=== PATIENT | female | born 1985 | race Caucasian/White ===

== ENCOUNTER 2017-07-17 10:00 | Emergency (ER) | payer BC ==
[2017-07-17 10:10] VITALS: BP 125/81
--- NOTE | 2017-07-17 11:05 | EDM.PDOC ---
ED HPI GENERAL MEDICAL PROBLEM - General Chief Complaint: Upper Extremity Injury/Pain Stated Complaint: LEFT WRIST INJURY Time Seen by Provider: 07/17/17 10:13 Source of Information: Reports: Patient History Limitations: Reports: No Limitations - History of Present Illness INITIAL COMMENTS - FREE TEXT/NARRATIVE: The patient presents with left wrist pain. She was playing volleyball last night and she went to hit a ball with her wrists and she felt pain in her left wrist at the distal ulna. She denies any other injuries. She has pain with movement. She has edema to the distal ulna. She has good sensation distally. She is right handed. 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: Other OB/BYN History: x3 - Past Surgical History GI Surgical History: Reports: Appendectomy Musculoskeletal Surgical History: Reports: Arthroscopic Knee Social & Family History - Family History Family Medical History: Noncontributory - Tobacco Use Smoking Status *Q: Current Every Day Smoker Years of Tobacco use: 15 Packs/Tins Daily: 0.5 - Caffeine Use Caffeine Use: Reports: Coffee - Recreational Drug Use Recreational Drug Use: No Review of Systems - Review of Systems Review Of Systems: See Below Constitutional: Reports: No Symptoms Eyes: Reports: No Symptoms Ears: Reports: No Symptoms Nose: Reports: No Symptoms Mouth/Throat: Reports: No Symptoms Respiratory: Reports: No Symptoms Cardiovascular: Reports: No Symptoms GI/Abdominal: Reports: No Symptoms Genitourinary: Reports: No Symptoms Musculoskeletal: Reports: Other (Left wrists pain) ED EXAM, GENERAL - Physical Exam Exam: See Below Exam Limited By: No Limitations General Appearance: Alert, No Apparent Distress Ears: Normal External Exam Nose: Normal Inspection Head: Atraumatic, Normocephalic Neck: Normal Inspection Respiratory/Chest: No Respiratory Distress Extremities: Other (Pain upon palpation to the left wrist at the ulna side. There is some edema. She has good sensation and capillary refill.) Course - Vital Signs Last Recorded V/S: Last Vital Signs Temp 98.1 F 07/17/17 10:05 Pulse 81 07/17/17 10:05 Resp 16 07/17/17 10:05 BP 125/81 07/17/17 10:05 Pulse Ox 100 07/17/17 10:05 - Orders/Labs/Meds Orders: Active Orders 24 hr Category Date Time Status Wrist Comp Min 3V Lt [CR] Stat Exams 07/17/17 10:16 Taken - Re-Assessments/Exams Free Text/Narrative Re-Assessment/Exam: 07/17/17 11:04 Her x-ray shows no fracture or dislocation. She has a sprain of her wrist. I will get her a velcro splint and have her follow up with her therapist. She is seeing one for her back. Departure - Departure Time of Disposition: 11:05 Disposition: Home, Self-Care 01 Condition: Good Clinical Impression: Sprain of left wrist Qualifiers: Encounter type: initial encounter Qualified Code(s): S63.502A - Unspecified sprain of left wrist, initial encounter - Discharge Information Referrals: Elizabeth Hyatt DO [Primary Care Provider] - Additional Instructions: Ice your wrist for 15 minutes every other hour while awake for 2 days. Take motrin or aleve for the pain. Wear the wrist splint for comfort for the next week. Follow up with your doctor for a repeat x-ray if you are not better in 1 to 2 weeks. - My Orders Last 24 Hours: My Active Orders 07/17/17 10:16 Wrist Comp Min 3V Lt [CR] Stat - Assessment/Plan Last 24 Hours: My Active Orders 07/17/17 10:16 Wrist Comp Min 3V Lt [CR] Stat
--- NOTE | 2017-07-17 11:29 | CR ---
Left wrist: Four views of the left wrist were obtained. Comparison: No prior study. Joint spaces within the left wrist appear maintained. No fracture, dislocation or other bony abnormality is seen. Impression: 1. No abnormality is identified on left wrist exam. Diagnostic code #1
== END 2017-07-17 11:13 | disposition home or self-care (01) ==
LOC: JD.ED 10:00
DX: S63.502A Unspecified sprain of left wrist, initial encounter (principal); F17.210 Nicotine dependence, cigarettes, uncomplicated; W22.8XXA Striking against or struck by other objects, initial encounter; Y93.68 Activity, volleyball (beach) (court)
CPT/HCPCS: 73110-26-LT; 73110-LT; 99283; 99284

== ENCOUNTER 2020-08-17 07:04 | Day surgery (SDC) | payer BC ==
[~2020-08-17 07:04] MED LIST: EPINEPHrine 1 MG/ML 30 ML MDV IRR SCH; Lactated Ringers 1,000 ML IV SCH; Lidocaine 1%/Sod Bicarbonate in NS 8.4% 1 ML Syringe IDERM PRN; Sodium Chloride 0.9% 10 ML Syringe FLUSH PRN
[2020-08-17] MEDS ORDERED: Lidocaine 1% 4 ML ONE (07:10)
[2020-08-17] MEDS ORDERED: Propofol 200 MG/20 ML SDV ONE (07:10)
[2020-08-17] MEDS ORDERED: fentaNYL 100 MCG/2 ML SDV ONE ×2 (07:11→07:20)
[2020-08-17] MEDS ORDERED: Ketorolac 30 MG/ML SDV ONE (07:11)
[2020-08-17] MEDS ORDERED: Midazolam 1 MG/ML 2 ML SDV ONE (07:11)
[2020-08-17] MEDS ORDERED: Ondansetron 4 MG/2 ML SDV ONE (07:11)
[2020-08-17] MEDS ORDERED: Scopolamine 1.5 MG Transdermal Patch TOP SCH (07:16)
[2020-08-17] MEDS ORDERED: ceFAZolin 1 GM Vial ONE (07:19)
--- NOTE | 2020-08-17 07:33 | PCM.PREANE ---
Preanesthetic Assessment - Anesthesia/Transfusion/Family Hx Anesthesia History: Prior Anesthesia Reaction Type of Anesthesia Reaction: Other (see below) (PONV) Family History of Anesthesia Reaction: No Transfusion History: No Prior Transfusion(s) - Review of Systems General: No Symptoms Pulmonary: Cough Cardiovascular: No Symptoms Gastrointestinal: No Symptoms Neurological: No Symptoms Other: Reports: None - Physical Assessment NPO Status Date: 08/16/20 NPO Status Time: 23:15 Vital Signs: Last Vital Signs Temp 36.7 C 08/17/20 07:10 Pulse 87 08/17/20 07:10 Resp 18 08/17/20 07:10 BP 118/73 08/17/20 07:10 Pulse Ox 97 08/17/20 07:10 Height: 1.7 m Weight: 62.596 kg ASA Class: 2 Mental Status: Alert & Oriented x3 Airway Class: Mallampati = 1 Dentition: Reports: Normal Dentition Thyro-Mental Finger Breadths: 3 Mouth Opening Finger Breadths: 3 ROM/Head Extension: Full Lungs: Clear to Auscultation, Normal Respiratory Effort Cardiovascular: Regular Rate, Regular Rhythm - Lab Values: Laboratory Last Values Urine HCG, Qual Negative (NEGATIVE) 08/17/20 07:05 MRSA (PCR) Negative 08/09/20 12:46 - Allergies Allergies/Adverse Reactions: Allergies Allergy/AdvReac Type Severity Reaction Status Date / Time latex Allergy Rash Verified 08/16/20 14:55 - Acknowledgements Anesthesia Type Planned: General Anesthesia Pt an Appropriate Candidate for the Planned Anesthesia: Yes Alternatives and Risks of Anesthesia Discussed w Pt/Guardian: Yes Pt/Guardian Understands and Agrees with Anesthesia Plan: Yes PreAnesthesia Questionnaire HEENT History: Reports: Allergic Rhinitis, Impaired Vision, Otitis Media Cardiovascular History: Reports: None Respiratory History: Reports: Other (See Below) Other Respiratory History: cough, URI Gastrointestinal History: Reports: None Genitourinary History: Reports: None 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 OB/BYN History: lost IUD, pelvic congestion syndrome, pelvic pain, mennorrhagia, vaginitis, , symphysis, pubis disruption Musculoskeletal History: Reports: None Neurological History: Reports: None Psychiatric History: Reports: None Endocrine/Metabolic History: Reports: None Hematologic History: Reports: Anemia Immunologic History: Reports: None Oncologic (Cancer) History: Reports: None Dermatologic History: Reports: None - Infectious Disease History Infectious Disease History: Reports: None - Past Surgical History Head Surgeries/Procedures: Reports: None HEENT Surgical History: Reports: Oral Surgery Cardiovascular Surgical History: Reports: None Respiratory Surgical History: Reports: None GI Surgical History: Reports: Appendectomy Female Surgical History: Reports: None Male Surgical History: Reports: None Endocrine Surgical History: Reports: None Neurological Surgical History: Reports: None Musculoskeletal Surgical History: Reports: Arthroscopic Knee Other Musculoskeletal Surgeries/Procedures:: knee surgery and hammer toe surgery Oncologic Surgical History: Reports: None Dermatological Surgical History: Reports: None - SUBSTANCE USE Tobacco Use Status *Q: Current Every Day Tobacco User Recreational Drug Use History: No - HOME MEDS Home Medications: Home Meds Ascorbic Acid [Vitamin C] 1,000 mg PO DAILY 08/16/20 [History] EPINEPHrine [Epipen] 1 dose IM ASDIRECTED 08/16/20 [History] Echinacea 380 mg PO DAILY 08/16/20 [History] Elderberry Fruit and Flower [Black Elderberry 575 mg Cap] 1 cap PO DAILY 08/16/20 [History] Multivitamin 1 tab PO DAILY 08/16/20 [History] levonorgestreL [Mirena] 1 device .ROUTE ASDIRECTED 08/16/20 [History] Acetaminophen/HYDROcodone [[place] 325-5 MG] 1 - 2 tab PO Q6H PRN #20 tablet 08/17/20 [Rx] Aspirin [Aspirin EC] 325 mg PO BID #84 tab 08/17/20 [Rx] - CURRENT (IN HOUSE) MEDS Current Meds: Current Medications Epinephrine HCl (Adrenalin) 3 mg IRR ONETIME OSWALDO Stop: 08/17/20 23:00 Lactated Ringer's (Ringers, Lactated) 1,000 mls @ 125 mls/hr IV ASDIRECTED OSWALDO Stop: 08/17/20 23:00 Lidocaine/Sodium Bicarbonate (Buffered Lidocaine 1% In Ns 8.4%) 0.25 ml IDERM ONETIME PRN PRN Reason: Prior to IV Start Stop: 08/17/20 18:00 Scopolamine (Transderm-Scop) 1.5 mg TOP ONETIME OSWALDO Stop: 08/17/20 12:00 Last Admin: 08/17/20 07:26 Dose: 1.5 mg Documented by: Sodium Chloride (Saline Flush) 10 ml FLUSH ASDIRECTED PRN PRN Reason: Keep Vein Open Stop: 08/17/20 18:00 Discontinued Medications Cefazolin Sodium (Ancef) Confirm Administered Dose 2 gm .ROUTE .STK-MED ONE Stop: 08/17/20 07:20 Fentanyl (Sublimaze) Confirm Administered Dose 100 mcg .ROUTE .STK-MED ONE Stop: 08/17/20 07:12 Fentanyl (Sublimaze) Confirm Administered Dose 100 mcg .ROUTE .STK-MED ONE Stop: 08/17/20 07:21 Lidocaine HCl (Xylocaine-Mpf 1%) Confirm Administered Dose 4 mls @ as directed .ROUTE .STK-MED ONE Stop: 08/17/20 07:11 Ketorolac Tromethamine (Toradol) Confirm Administered Dose 30 mg .ROUTE .STK-MED ONE Stop: 08/17/20 07:12 Midazolam HCl (Versed 1 Mg/Ml) Confirm Administered Dose 2 mg .ROUTE .STK-MED ONE Stop: 08/17/20 07:12 Ondansetron HCl (Zofran) Confirm Administered Dose 4 mg .ROUTE .STK-MED ONE Stop: 08/17/20 07:12 Propofol (Diprivan 20 Ml) Confirm Administered Dose 200 mg .ROUTE .STK-MED ONE Stop: 08/17/20 07:11
[2020-08-17] MEDS ORDERED: Bupivacaine 0.25% 10 ML SDV ONE (08:18)
[2020-08-17] MEDS ORDERED: Succinylcholine/Sod PF 100 MG/5 ML SYRINGE IV ONE (08:56)
[2020-08-17] MEDS ORDERED: fentaNYL 100 MCG/2 ML SDV IVPUSH PRN (09:02)
[2020-08-17] MEDS ORDERED: Ondansetron 4 MG/2 ML SDV IVPUSH PRN (09:02)
[2020-08-17] MEDS ORDERED: Lactated Ringers 1,000 ML ONE (09:16)
--- NOTE | 2020-08-17 09:48 | PCM.POSTAN ---
POST ANESTHESIA ASSESSMENT - MENTAL STATUS Mental Status: Alert, Oriented - VITAL SIGNS Vital Signs: Last Vital Signs Temp 36.7 C 08/17/20 07:10 Pulse 87 08/17/20 07:10 Resp 18 08/17/20 07:10 BP 118/73 08/17/20 07:10 Pulse Ox 97 08/17/20 07:10 - RESPIRATORY Respiratory Status: Respiratory Rate WNL, Airway Patent, O2 Saturation Stable - CARDIOVASCULAR CV Status: Pulse Rate WNL, Blood Pressure Stable - GASTROINTESTINAL GI Status: No Symptoms - PAIN Pain Score: 1 - POST OP HYDRATION Hydration Status: Adequate & Stable
[2020-08-17] MEDS ORDERED: Acetaminophen/HYDROcodone 325-5 MG Tab PO PRN (10:44)
[2020-08-17 11:35] VITALS: BP 93/59; PULSE 60
--- NOTE | 2020-08-17 11:42 | PCM48HPAN ---
Post Anesthesia Note - EVALUATION WITHIN 48HRS OF ANESTHETIC Vital Signs in Normal Range: Yes Patient Participated in Evaluation: Yes Respiratory Function Stable: Yes Airway Patent: Yes Cardiovascular Function Stable: Yes Hydration Status Stable: Yes Pain Control Satisfactory: Yes Nausea and Vomiting Control Satisfactory: Yes Mental Status Recovered: Yes Vital Signs: Last Vital Signs Temp 36.7 C 08/17/20 11:10 Pulse 60 08/17/20 11:34 Resp 16 08/17/20 11:34 BP 93/59 L 08/17/20 11:34 Pulse Ox 97 08/17/20 11:34
--- NOTE | 2020-08-28 07:47 | PCM.OPNOTE ---
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
--- NOTE | 2020-09-01 13:02 | OR ---
DATE OF OPERATION: 08/17/2020 SURGEON: Domenic Ruiz MD OPERATION PERFORMED: Right knee video arthroscopy, partial medial meniscectomy, and partial synovectomy. 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 ANESTHESIA: General LMA with local. ANESTHESIA PROVIDER: Linette Duncan CRNA. SEO ANALYST: Patsy Riley PA-C ESTIMATED BLOOD LOSS: Less than 5 mL. COMPLICATIONS: None. CONDITION: Stable. DESCRIPTION OF PROCEDURE: The patient was identified in the preoperative holding area where proper site was marked and identified by the surgeon. The patient was taken back to the operative theater where, after adequate anesthesia, the patient's left lower extremity was placed in a well leg goncalves. Right lower extremity had a nonsterile tourniquet applied and then was placed in a C-clamp goncalves. Foot of the bed was then lowered. Right lower extremity was then sterilely prepped and draped in the usual sterile fashion. OR time-out was performed. The patient received 2 g of IV Ancef. At this time, the right lower extremity was exsanguinated. Tourniquet was insufflated to 250 mmHg. Standard anterolateral portal incision was made. Scope trocar was introduced. The patient was noted to have grade 2 chondromalacia of the patella with some areas of grade 3. She was noted to have significant synovitis. There were no loose cartilaginous flaps. At this time, attention was turned to the medial compartment. Anteromedial portal was created with the use of a spinal needle. The patient was noted to have diffuse tear of the posterior horn, but more degenerative posterior horn of the medial meniscus and was not repairable. At this time, partial medial meniscectomy of roughly 35% to 40% of the posterior horn was then done back to a stable rim. The patient was then noted to have some grade 2 chondromalacia of the medial femoral condyle, but no loose cartilaginous flaps. The patient was noted to have significant overgrowth of the fat pad with synovitis of the fat pad anteriorly. The notch showed the ACL intact. Lateral compartment showed no signs of chondromalacia. At this time, attention was turned to the anterior compartment again and a partial synovectomy of the fat pad was then undertaken with significant synovitis and impingement. Excess saline was drained from the knee. 3-0 nylon suture was used for closure of the skin. The patient was placed in a sterile soft dressing and sent to the PACU in stable condition. GABE /[id number]
== END 2020-08-17 12:00 | disposition home or self-care (01) ==
LOC: JD.SDS 07:04
PROVIDERS: ATTEND Orthopaedic Surgery
DX: S83.241A Other tear of medial meniscus, current injury, right knee, initial encounter (principal); M22.41 Chondromalacia patellae, right knee; M25.861 Other specified joint disorders, right knee; M65.861 Other synovitis and tenosynovitis, right lower leg; G89.29 Other chronic pain; Z91.030 Bee allergy status; Z91.040 Latex allergy status; Z79.899 Other long term (current) drug therapy; Z98.890 Other specified postprocedural states; Z87.891 Personal history of nicotine dependence; Z79.82 Long term (current) use of aspirin
CPT/HCPCS: 29875; 29881; 81025; 87641; A9270; J0171; J0330; J0690; J1885; J2001; J2250; J2405; J2704; J3010; J3490; J7120; 01400

== ENCOUNTER 2022-04-27 06:05 | Emergency (ER) | payer BC, OTHER ==
[2022-04-27 07:31] VITALS: BP 122/78; PULSE 73
[2022-04-27] MEDS ORDERED: Sodium Chloride 0.9% 1,000 ML IV STA (07:37)
[2022-04-27] MEDS ORDERED: Sodium Chloride 0.9% 10 ML Syringe FLUSH PRN (07:37)
[2022-04-27] MEDS ORDERED: Ondansetron 4 MG/2 ML SDV IVPUSH ONE (07:37)
[2022-04-27] MEDS ORDERED: HYDROmorphone 0.5 MG/0.5 ML Syringe IVPUSH ONE (07:39)
== END 2022-04-27 10:12 | disposition home or self-care (01) ==
LOC: JD.ED 06:05
DX: R10.13 Epigastric pain (principal); R11.2 Nausea with vomiting, unspecified; R19.7 Diarrhea, unspecified; Z91.040 Latex allergy status; Z79.899 Other long term (current) drug therapy; Z79.82 Long term (current) use of aspirin; Z90.49 Acquired absence of other specified parts of digestive tract
CPT/HCPCS: 36415; 76705; 80053; 81001; 83690; 85025; 96361; 96374; 99284; J2405; J3490; J7030

== ENCOUNTER 2022-05-01 09:18 | Day surgery (SDC) | payer OTHER ==
[~2022-05-01 09:18] MED LIST changes: +Dexamethasone 4 MG/ML SDV ONE; -EPINEPHrine 1 MG/ML 30 ML MDV IRR SCH; +Ketorolac 15 MG/ML SDV ONE; -Lactated Ringers 1,000 ML IV SCH; +Lidocaine 1% 4 ML ONE; -Lidocaine 1%/Sod Bicarbonate in NS 8.4% 1 ML Syringe IDERM PRN; +Midazolam 1 MG/ML 2 ML SDV ONE; +Ondansetron 4 MG/2 ML SDV ONE; +Propofol 200 MG/20 ML SDV ONE; +Rocuronium 50 MG/5 ML Vial ONE; -Sodium Chloride 0.9% 10 ML Syringe FLUSH PRN; +fentaNYL 250 MCG/5 ML SDV ONE
[2022-05-01] MEDS ORDERED: Bupivacaine 0.5%/EPINEPHrine 1:200,000 50 ML MDV ONE (09:58)
[2022-05-01] MEDS ORDERED: Ondansetron 4 MG/2 ML SDV IVPUSH PRN (10:15)
[2022-05-01] MEDS ORDERED: fentaNYL 100 MCG/2 ML SDV IVPUSH PRN ×2 (10:15→13:00)
[2022-05-01] MEDS ORDERED: Promethazine 25 MG/ML SDV IM ONE (10:15)
[2022-05-01] MEDS ORDERED: HYDROmorphone 0.5 MG/0.5 ML Syringe IVPUSH PRN (10:15)
[2022-05-01] MEDS ORDERED: Scopolamine 1.5 MG Transdermal Patch TOP ONE (10:30)
[2022-05-01] MEDS ORDERED: ceFAZolin 2 GM Vial ONE (10:57)
[2022-05-01] MEDS ORDERED: Lactated Ringers 1,000 ML ONE ×2 (11:09→12:01)
[2022-05-01] MEDS ORDERED: Ketamine 500 mg/10 ML MDV ONE (11:09)
[2022-05-01] MEDS ORDERED: Neostigmine Methylsulfate 10 MG/10 ML MDV ONE (11:23)
[2022-05-01] MEDS ORDERED: Propofol 200 MG/20 ML SDV ONE (11:25)
[2022-05-01] MEDS ORDERED: diphenhydrAMINE 50 MG/ML SDV ONE (11:27)
[2022-05-01] MEDS ORDERED: Lactated Ringers 1,000 ML IV SCH (12:00)
[2022-05-01] MEDS ORDERED: Promethazine 12.5 MG in Sodium Chloride 0.9% 50 ML IV PRN (13:04)
[2022-05-01] MEDS ORDERED: traMADol 50 MG Tab PO ONE (14:30)
[2022-05-01 15:55] VITALS: BP 113/73; PULSE 84
== END 2022-05-01 15:50 | disposition home or self-care (01) ==
LOC: JD.SDS 09:18
PROVIDERS: ATTEND Surgery
DX: K81.1 Chronic cholecystitis (principal); K29.80 Duodenitis without bleeding; K82.8 Other specified diseases of gallbladder; G89.29 Other chronic pain; J30.9 Allergic rhinitis, unspecified; F41.9 Anxiety disorder, unspecified; E55.9 Vitamin D deficiency, unspecified; Z91.040 Latex allergy status; Z91.030 Bee allergy status; Z79.899 Other long term (current) drug therapy; Z90.49 Acquired absence of other specified parts of digestive tract; Z98.890 Other specified postprocedural states; Z87.891 Personal history of nicotine dependence
CPT/HCPCS: 43239; 47562; 81025; A9270; J0690; J1100; J1200; J1885; J2250; J2405; J2704; J2710; J3010; J3490; J7120; 88305

== ENCOUNTER 2022-08-02 11:57 | Emergency (ER) | payer OTHER ==
[2022-08-02] MEDS ORDERED: Sodium Chloride 0.9% 10 ML Syringe FLUSH PRN (12:17)
[2022-08-02] MEDS ORDERED: Ondansetron 4 MG/2 ML SDV IVPUSH ONE (12:19)
[2022-08-02] MEDS ORDERED: Sodium Chloride 0.9% 1,000 ML IV ONE ×2 (12:19→13:49)
[2022-08-02] MEDS ORDERED: Pantoprazole 40 MG Vial IVPUSH ONE (12:30)
[2022-08-02 13:18] LABS: CORONAVIRUS COVID-19 NAA POSITIVE (NEGATIVE)
[2022-08-02 13:20] LABS: ESTIMATED GFR 86 mL/min (>60)
[2022-08-02] MEDS ORDERED: Magnesium Sulfate/Water 4 GM in Premix Bag 1 BAG IV ONE (13:48)
[2022-08-02] MEDS ORDERED: Ketorolac 30 MG/ML SDV IVPUSH ONE (13:54)
[2022-08-02 17:06] VITALS: BP 95/55; PULSE 91
== END 2022-08-02 17:15 | disposition home or self-care (01) ==
LOC: JD.ED 11:57
DX: U07.1 COVID-19 (principal); E83.42 Hypomagnesemia; Z91.030 Bee allergy status; Z91.040 Latex allergy status; Z88.6 Allergy status to analgesic agent; Z79.899 Other long term (current) drug therapy; Z90.49 Acquired absence of other specified parts of digestive tract
CPT/HCPCS: 0240U; 36415; 71045; 80053; 83605; 83735; 84484; 85025; 85379; 86140; 93005; 96361; 96365; 96375; 99285; C9113; J1885; J2405; J3475; J3490; J7030; 93010; 99284

== ENCOUNTER 2023-11-05 08:40 | Day surgery (SDC) | payer OTHER ==
[~2023-11-05 08:40] MED LIST changes: -Dexamethasone 4 MG/ML SDV ONE; -Ketorolac 15 MG/ML SDV ONE; -Lidocaine 1% 4 ML ONE; -Midazolam 1 MG/ML 2 ML SDV ONE; -Ondansetron 4 MG/2 ML SDV ONE; -Propofol 200 MG/20 ML SDV ONE; -Rocuronium 50 MG/5 ML Vial ONE; +Sodium Chloride 0.9% 10 ML Syringe FLUSH PRN; -fentaNYL 250 MCG/5 ML SDV ONE
[2023-11-05] MEDS: Lactated Ringers 1,000 ML IV SCH ×2 (09:00→13:13)
[2023-11-05] MEDS ORDERED: Sodium Chloride 0.9% 10 ML Syringe FLUSH SCH (09:00)
[2023-11-05] MEDS ORDERED: Bupivacaine 0.25% 10 ML SDV ONE (10:54)
[2023-11-05] MEDS ORDERED: EPINEPHrine 1 MG/ML SDV ONE (10:55)
[2023-11-05] MEDS ORDERED: Scopalamine 1mg/3day Transdermal Patch TRDERM PRN (11:03)
[2023-11-05] MEDS ORDERED: Caffeine 200 MG Tab PO STA (11:15)
[2023-11-05] MEDS ORDERED: Scopalamine 1mg/3day Transdermal Patch TOP SCH (11:17)
[2023-11-05] MEDS ORDERED: HYDROmorphone 0.5 MG/0.5 ML Syringe IVPUSH PRN (11:18)
[2023-11-05] MEDS ORDERED: fentaNYL 100 MCG/2 ML SDV IVPUSH PRN (11:18)
[2023-11-05] MEDS ORDERED: Ondansetron 4 MG/2 ML SDV IVPUSH PRN (11:18)
[2023-11-05] MEDS ORDERED: Lidocaine 2% 11 ML Jelly Filled Syringe ONE (11:26)
[2023-11-05] MEDS ORDERED: Lidocaine 2% 5 ML SDV ONE (11:30)
[2023-11-05] MEDS ORDERED: Midazolam 1 MG/ML 2 ML SDV ONE (11:31)
[2023-11-05] MEDS ORDERED: Propofol 200 MG/20 ML SDV ONE (11:31)
[2023-11-05] MEDS ORDERED: Ondansetron 4 MG/2 ML SDV ONE (12:13)
[2023-11-05] MEDS ORDERED: Dexamethasone 4 MG/ML 5 ML MDV ONE (12:13)
[2023-11-05] MEDS ORDERED: HYDROmorphone 0.5 MG/0.5 ML Syringe ONE (12:18)
[2023-11-05] MEDS ORDERED: Lactated Ringers 1,000 ML IV ONE (12:30)
[2023-11-05] MEDS ORDERED: Lidocaine 1% 2 ML ONE (12:56)
[2023-11-05] MEDS ORDERED: Ketorolac 15 MG/ML SDV ONE (12:56)
[2023-11-05] MEDS ORDERED: traMADol 50 MG Tab PO SCH (14:47)
[2023-11-05 14:48] VITALS: BP 119/80; PULSE 70
== END 2023-11-05 14:58 | disposition home or self-care (01) ==
LOC: JD.SDS 08:40
PROVIDERS: ATTEND Orthopaedic Surgery
DX: S83.282A Other tear of lateral meniscus, current injury, left knee, initial encounter (principal); M22.42 Chondromalacia patellae, left knee; F41.9 Anxiety disorder, unspecified; Z87.891 Personal history of nicotine dependence; Z79.899 Other long term (current) drug therapy; Z91.030 Bee allergy status; Z91.040 Latex allergy status; Z88.5 Allergy status to narcotic agent
CPT/HCPCS: 01400; 81025; A9270-GY; J0171; J1100; J1170; J1885; J2250; J2405; J2704; J3490; J7120